=== PATIENT | male | born 1980 ===

== ENCOUNTER 2023-05-28 23:46 | Emergency (ER) | payer SELFPAY ==
[2023-05-29] MEDS ORDERED: DEXTROSE 50%-WATER - 25 GM/50 ML VIAL IVPUSH ONE ×2 (00:08→01:02)
[2023-05-29 00:15] VITALS: BP 125/88; PULSE 77; RESP 18; TEMP 96.1; BMI 21.4
[2023-05-29] MEDS ORDERED: DEXTROSE 50%-WATER 25 GM/50 ML DISP.SYRIN ONE ×2 (00:51→01:13)
[2023-05-29] MEDS ORDERED: DEXTROSE 5%-NORMAL SALINE 1,000 ML IV ONE (01:03)
[2023-05-29 01:19] LABS: INR 0.83 (0.83-1.09); PROTHROMBIN TIME (PATIENT) 9.6 SEC (9.7-13.0)
[2023-05-29 01:22] LABS: ACTIVATED PTT 22.6 SECONDS (25.2-36.5)
[2023-05-29 01:36] LABS: EPI CELLS 4 /uL (0-25.1); HYALINE CASTS 1 /uL (0-3.1); PH,URINE 5.5 (5.0-8.0); URINE APPEARANCE CLEAR; URINE BACTERIA 9 /uL (0-1359); URINE BILIRUBIN NEGATIVE (NEGATIVE); URINE COLOR YELLOW; URINE GLUCOSE (UA) NEGATIVE (NEGATIVE); URINE KETONE 3+ (NEGATIVE); URINE LEUK ESTERASE NEGATIVE (NEGATIVE); URINE NITRITE NEGATIVE (NEGATIVE); URINE PROTEIN 1+ (NEGATIVE); URINE RBC 6 /uL (0-23.9); URINE WBC 5 /uL (0-25.8)
[2023-05-29 01:47] LABS: OPIATES, URI NEGATIVE (NEGATIVE); URINE BARBITURATES NEGATIVE (NEGATIVE)
[2023-05-29 01:48] LABS: COCAINE, UR NEGATIVE (NEGATIVE); PHENCYCLIDINE,URINE NEGATIVE (NEGATIVE)
[2023-05-29 01:50] LABS: URINE AMPHETAMINES NEGATIVE (NEGATIVE)
[2023-05-29 01:51] LABS: METHADONE, UR NEGATIVE (NEGATIVE); URINE BENZODIAZEPINES NEGATIVE (NEGATIVE)
[2023-05-29] MEDS ORDERED: FOLIC ACID INJECTION - 1 MG, THIAMINE HCL 100 MG, MULTIVIT INJECTION ADULT 10 ML in SOD... IVPB ONE (03:44)
== END 2023-05-29 06:36 | disposition home or self-care (01) ==
LOC: JER 23:46 → EDBD 23:46 → JER 05-29 06:36
PROC: 3E033GC Introduction of Other Therapeutic Substance into Peripheral Vein, Percutaneous Approach (ICD-10-PCS; principal; 2023-05-29)
PROC: 3E033GC Introduction of Other Therapeutic Substance into Peripheral Vein, Percutaneous Approach (ICD-10-PCS; 2023-05-29)
PROC: 3E033GC Introduction of Other Therapeutic Substance into Peripheral Vein, Percutaneous Approach (ICD-10-PCS; 2023-05-29)
DX: E11.649 Type 2 diabetes mellitus with hypoglycemia without coma (principal); R11.10 Vomiting, unspecified; R32 Unspecified urinary incontinence
CPT/HCPCS: 36415; 80307; 81003; 82962; 84484; 85610; 85730; 99284-25